=== PATIENT | female | born 1930 | race Caucasian/White ===

== ENCOUNTER 2017-02-20 09:31 | Emergency (ER) | payer MEDICARE, BC ==
[2017-02-20] MEDS ORDERED: ONDANSETRON HCL/PF 2 MG/ML VIAL ONE (09:50)
[2017-02-20] MEDS ORDERED: NORMAL SALINE 1,000 ML IV ONE ×2 (09:50→15:28)
[2017-02-20] MEDS ORDERED: ONDANSETRON HCL/PF 2 MG/ML VIAL IV ONE (09:53)
[2017-02-20 09:59] LABS: Hematocrit 30.6 % (37.0-47.0); Mean Corpuscular Hemoglobin 29.1 pg (27-31); Mean Corpuscular Hgb Conc 32.7 g/dl (32-36); Mean Platelet Volume 10.1 fl (6.0-9.5); Platelet Count 280 K/mm3 (150-450); Red Blood Count 3.44 M/mm3 (4.2-5.4); Red Cell Distribution Width 13.7 % (11.5-14.0)
[2017-02-20 10:03] LABS: Total Cells Counted 100
[2017-02-20 10:09] LABS: Prothrombin Time (Patient) 40.1 Seconds (9.0-11.0)
[2017-02-20 10:10] LABS: Band 10 % (0-2.0); INR 3.95 INR (0.90-1.10); Immature Granulocyte 3 (0-1); Lymphocyte 8 % (20-51); Neutrophil 79 % (42-75); Neutrophil # 23.7 K/mm3 (1.3-6.0)
[2017-02-20 10:11] LABS: Dohle Bodies 2+; Platelet Estimate Normal (NORMAL); Toxic Granulation 1+
[2017-02-20 10:20] LABS: Albumin * 3.4 gm/dl (3.4-5.0); Anion Gap 18.5 mmol/L (6.8-13.8); BUN/Creatinine Ratio 34.1 (9.0-21.6); Bilirubin, Total 1.2 mg/dL (0.0-1.1); Calcium * 9.8 mg/dL (7.9-10.9); Carbon Dioxide 24.2 mmol/L (24-32.6); Potassium 3.7 mmol/L (3.4-4.6); Total Protein 6.7 gm/dL (6.2-8.2)
[2017-02-20] MEDS ORDERED: HYDROmorphone HCL 1 MG/ML DISP.SYRIN IV ONE ×3 (10:49→23:48)
[2017-02-20] MEDS ORDERED: HYDROmorphone HCL 1 MG/ML DISP.SYRIN ONE (10:50)
[2017-02-20] MEDS ORDERED: DIPHTH,PERTUSS(ACELL),TET VAC 0.5 ML VIAL IM ONE ×2 (11:01→11:15)
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
[2017-02-20] MEDS ORDERED: NORMAL SALINE 1,000 ML IV PRN (11:14)
[2017-02-20 11:27] LABS: Urine Bilirubin Negative (NEGATIVE); Urine Blood 25 /ul (NEGATIVE); Urine Ketone Negative (NEGATIVE); Urine Nitrite Negative (NEGATIVE); Urine Protein 15 mg/dL (NEGATIVE); Urine Specific Gravity 1.025 SP.GR. (1.005-1.010); Urine Urobilinogen Normal (NORMAL); Urine pH 5.5 pH (5.0-7.0)
[2017-02-20 11:34] LABS: Urine Appearance Slightly Cloudy; Urine Bacteria TRACE; Urine Color Yellow; Urine RBC None Seen /hpf (0-5); Urine WBC 0-5 /hpf (0-5)
[2017-02-20 11:40] LABS: Cocaine Ur Negative (NEGATIVE); Urine Barbiturate Negative (NEGATIVE); Urine Benzodiazepines Negative (NEGATIVE); Urine Opiates Negative (NEGATIVE); Urine PCP Negative (NEGATIVE); Urine THC Negative (NEGATIVE)
[2017-02-20] MEDS ORDERED: HYDROmorphone HCL 2 MG/ML VIAL ONE ×2 (14:38→23:33)
[2017-02-20] MEDS ORDERED: HYDROmorphone HCL 1 MG/ML DISP.SYRIN IV PRN (15:49)
[2017-02-20 16:27] LABS: Hematocrit 25.9 % (37.0-47.0); Mean Cell Volume 94.9 fl (78-100); Mean Corpuscular Hemoglobin 28.6 pg (27-31); Mean Corpuscular Hgb Conc 30.1 g/dl (32-36); Neutrophil # 17.5 K/mm3 (1.3-6.0); Neutrophil % 79.1 % (42-75.0); Platelet Count 168 K/mm3 (150-450); Red Blood Count 2.73 M/mm3 (4.2-5.4); White Blood Count 22.1 K/mm3 (4.0-10.5)
[2017-02-20 16:41] LABS: Hemoglobin 7.8 gm/dL (12.5-16.0)
[2017-02-20 16:42] LABS: Total Cells Counted 100
[2017-02-20 17:45] LABS: Band 3 % (0-2.0); Lymphocyte 19 % (20-51); Monocyte 6 % (0-9); Neutrophil 72 % (42-75); Neutrophil # 15.9 K/mm3 (1.3-6.0); Platelet Estimate Normal (NORMAL)
[2017-02-20 17:46] LABS: Microcytosis 1+
[2017-02-20] MEDS ORDERED: HYDROmorphone HCL 1 MG/ML DISP.SYRIN IM ONE (23:39)
[2017-02-20] MEDS ORDERED: DILTIAZEM HCL 5 MG/ML VIAL IV ONE (23:42)
--- NOTE | 2017-02-20 23:43 | PN ---
<Albaro Rehman - Last Filed: 02/21/17 04:12> Progess Note - Interim Narrative: 02/20/17 23:43 Patient is doing well. Pain and came back so we gave her some Dilaudid. She was noted to have a heart rate of 153. I asked to move moved over to a regular room or return monitor here. We'll start her on Cardizem. We will also give a drip. 02/21/17 04:12 The patient's heart rate is now in the 130s. I have given her an additional amp of calcium gluconate which raised her blood pressure to 99/53. Cardizem was increased to 15 mg per hour. The patient's pain is under control <Elliott Moctezuma - Last Filed: 02/21/17 13:34> COURSE - Course Orders, Progress: Active Medications Sodium Chloride (Sodium Chloride 0.9%) 1,000 mls @ 999 mls/hr IV .Q1H1M PRN PRN Reason: HYDRATION Last Infusion: 02/20/17 14:36 Dose: Infused Diltiazem HCl 125 mg/ Dextrose (/Water) 125 mls @ 0 mls/hr IV TITR PRN; Protocol; Titrate PRN Reason: Arrhythmia Stop: 03/22/17 23:43 Last Admin: 02/21/17 11:44 Dose: 10 ml/hr, 10 mls/hr Ceftriaxone Sodium 1,000 mg/ (Dextrose/Water) 50 mls @ 100 mls/hr IV DAILY REY PRN Reason: Protocol Stop: 02/25/17 09:29 Last Admin: 02/21/17 09:47 Dose: 100 mls/hr Morphine Sulfate (Morphine Sulfate) 2 mg IV Q4H PRN PRN Reason: Pain Stop: 03/23/17 09:34 Last Admin: 02/21/17 10:53 Dose: 2 mg Discontinued Medications Calcium Gluconate (Calcium Gluconate) 4.65 meq IV ONCE ONE Stop: 02/21/17 00:23 Last Admin: 02/21/17 00:30 Dose: 4.65 meq Calcium Gluconate (Calcium Gluconate) 4.65 meq IV ONCE ONE Stop: 02/21/17 04:06 Last Admin: 02/21/17 04:07 Dose: 4.65 meq Diltiazem HCl (Cardizem) 10 mg IV ONCE ONE Stop: 02/20/17 23:43 Last Admin: 02/21/17 00:15 Dose: 10 mg Diphtheria/Tetanus/Acell Pertussis (Adacel) 0.5 ml IM .ONCE ONE Stop: 02/20/17 11:02 Last Admin: 02/20/17 11:34 Dose: 0.5 ml Hydromorphone HCl (Dilaudid) 0.5 mg IV ONCE ONE Stop: 02/20/17 10:50 Last Admin: 02/20/17 10:53 Dose: 0.5 mg Hydromorphone HCl (Dilaudid) 0.5 mg IV ONCE ONE Stop: 02/20/17 14:28 Last Admin: 02/20/17 14:38 Dose: 0.5 mg Hydromorphone HCl (Dilaudid) 0.5 mg IM ONCE ONE Stop: 02/20/17 23:40 Last Admin: 02/21/17 00:10 Dose: Not Given Hydromorphone HCl (Dilaudid) 0.5 mg IV ONCE ONE Stop: 02/20/17 23:49 Last Admin: 02/21/17 00:00 Dose: 0.5 mg Sodium Chloride (Sodium Chloride 0.9%) 1,000 mls @ 999 mls/hr IV .Q1H1M ONE Stop: 02/20/17 10:50 Last Infusion: 02/20/17 11:31 Dose: Infused Ceftriaxone Sodium 1,000 mg/ (Dextrose/Water) 100 mls @ 200 mls/hr IV ONCE ONE PRN Reason: Protocol Stop: 02/20/17 11:20 Last Infusion: 02/20/17 14:37 Dose: Infused Sodium Chloride (Sodium Chloride 0.9%) 1,000 mls @ 250 mls/hr IV .Q4H ONE Stop: 02/20/17 19:27 Last Infusion: 02/20/17 15:35 Dose: 250 mls/hr Ondansetron HCl (Zofran) 4 mg IV ONCE ONE Stop: 02/20/17 09:54 Last Admin: 02/20/17 09:54 Dose: 4 mg 02/20/17 09:46 Chest Single View * Stat 02/20/17 09:47 EKG * Stat 02/20/17 09:49 CT Cervical W/O * Stat CT Head W/O * Stat 02/20/17 09:50 Normal Saline [Sodium Chloride 0.9%] 1,000 ml IV 999 mls/hr Ondansetron HCl/Pf [Zofran] 4 mg .ROUTE .STK-MED ONE 02/20/17 09:53 Ondansetron HCl/Pf [Zofran] 4 mg IV ONCE ONE 02/20/17 09:55 Blood [Packed Cells [id number]] Routine Fresh Frozen Plasma Routine Type and Screen Routine CBC Routine Comprehensive Metabolic Panel Routine ETOH Routine INR [Prothrombin Time] Routine Lactic Acid Routine 02/20/17 09:56 Hip & Pelvis 2-3 Views RT * Stat 02/20/17 10:06 Insert Urinary catheter ONCE Manage Urinary catheter QSHIFT 02/20/17 10:49 HYDROmorphone HCL [Dilaudid] 0.5 mg IV ONCE ONE 02/20/17 10:50 UCS * Routine Urine Drug Screen FMCH * Routine HYDROmorphone HCL [Dilaudid] 1 mg .ROUTE .STK-MED ONE 02/20/17 10:51 cefTRIAXone SODIUM [Rocephin] 1,000 mg Dextrose 5 % in Water [Dextrose 5%/ Water] 100 ml IV ONCE 02/20/17 11:01 Elbow 2 View LT Stat Knee 1 or2 View RT Stat Wrist Min 3 Views RT Stat Diphth,Pertuss(Acell),Tet Vac [Adacel] 0.5 ml IM .ONCE ONE 02/20/17 11:14 Normal Saline [Sodium Chloride 0.9%] 1,000 ml IV 999 mls/hr 02/20/17 11:15 Diphth,Pertuss(Acell),Tet Vac [Adacel] 0.5 ml IM .[facility] ONE 02/20/17 11:16 Blood Product(Nursg Com) Order .see physician order 02/20/17 11:40 Culture Blood Routine 02/20/17 12:53 Lactic Acid Routine 02/20/17 14:27 HYDROmorphone HCL [Dilaudid] 0.5 mg IV ONCE ONE 02/20/17 14:38 HYDROmorphone HCL [Dilaudid] 2 mg .ROUTE .STK-MED ONE 02/20/17 15:28 Normal Saline [Sodium Chloride 0.9%] 1,000 ml IV 250 mls/hr 02/20/17 15:49 HYDROmorphone HCL [Dilaudid] 0.5 mg IV Q4H PRN 02/20/17 16:17 Lactic Acid Routine 02/20/17 16:25 CBC Routine 02/20/17 16:41 Blood Product(Nursg Com) Order .see physician order Hgb/Hct .2H POST BLD TRANSF 02/20/17 23:33 HYDROmorphone HCL [Dilaudid] 2 mg .ROUTE .STK-MED ONE 02/20/17 23:39 HYDROmorphone HCL [Dilaudid] 0.5 mg IM ONCE ONE 02/20/17 23:42 Diltiazem HCl [Cardizem] 10 mg IV ONCE ONE Diltiazem HCl [Cardizem] 125 mg Dextrose 5 % in Water [Dextrose 5%/Water] 100 ml IV TITR 02/20/17 23:48 HYDROmorphone HCL [Dilaudid] 0.5 mg IV ONCE ONE 02/20/17 Dinner Regular Diet [DIET] 02/21/17 00:01 NPO [Nothing Per Oral] [DIET] 02/21/17 00:12 Diltiazem HCl [Cardizem] 25 mg IV .STK-MED ONE 02/21/17 00:22 Calcium Gluconate 4.65 meq IV .STK-MED ONE Calcium Gluconate 4.65 meq IV ONCE ONE 02/21/17 04:00 Calcium Gluconate 4.65 meq IV .STK-MED ONE 02/21/17 04:05 Calcium Gluconate 4.65 meq IV ONCE ONE 02/21/17 05:59 CBC Routine Comprehensive Metabolic Panel Routine Lactic Acid Routine Prothrombin Time Routine 02/21/17 09:33 Morphine Sulfate 2 mg IV Q4H PRN 02/21/17 10:34 Morphine Sulfate 2 mg .ROUTE .STK-MED ONE 02/21/17 11:30 cefTRIAXone SODIUM [Rocephin] 1,000 mg Dextrose 5 % in Water [Dextrose 5%/ Water] 100 ml IV DAILY 02/22/17 09:00 cefTRIAXone SODIUM [Rocephin] 1,000 mg Dextrose 5 % in Water [Dextrose 5%/ Water] 50 ml IV DAILY ED Progress - PROGRESS/REASSESSMENT Condition: Unchanged - VITAL SIGNS Patient's Vital Signs:: I have reviewed the patient's vital signs. Vital Signs - Last Taken Temp 37.3 C 02/21/17 12:53 Pulse 105 H 02/21/17 13:26 Resp 22 H 02/21/17 13:26 BP 97/43 02/21/17 13:26 Pulse Ox 96 02/21/17 13:26 - RESULTS AND ORDERS Patient's Lab Results:: I have reviewed the patient's lab results. Results and Orders: Abnormal/Pending Laboratory Last 24 HRS 02/21/17 02/21/17 02/21/17 05:59 05:59 05:59 WBC 23.6 H RBC 3.07 L Hgb 9.0 L Hct 27.1 L MCHC RDW 14.5 H MPV 10.5 H Immature Gran % (Auto) Immature Gran # (Auto) Neutrophils % Neutrophils % (Manual) 83 H Band Neuts % (Manual) 3 H Lymphocytes % Lymphocytes % (Manual) 12 L Neutrophils # Neutrophils # (Manual) 19.6 H Lymphocytes # (Manual) Monocytes # Monocytes # (Manual) PT 19.3 H INR (Anticoag Therapy) 1.92 H Chloride 107 H BUN 55 H Creatinine 1.41 H Est GFR (Non-Af Amer) 38 L D BUN/Creatinine Ratio 39.0 H Random Glucose 138 H Lactic Acid, Venous AST 148 H Total Protein 5.7 L Albumin 2.7 L Crossmatch 02/20/17 02/20/17 02/20/17 16:25 16:17 09:55 WBC 22.1 H D RBC 2.73 L Hgb 7.8 L* D Hct 25.9 L MCHC 30.1 L RDW MPV 11.0 H Immature Gran % (Auto) 0.60 H Immature Gran # (Auto) 0.13 H Neutrophils % 79.1 H Neutrophils % (Manual) Band Neuts % (Manual) 3 H Lymphocytes % 11.5 L Lymphocytes % (Manual) 19 L Neutrophils # 17.5 H Neutrophils # (Manual) 15.9 H Lymphocytes # (Manual) 4.2 H Monocytes # 1.9 H Monocytes # (Manual) 1.3 H PT INR (Anticoag Therapy) Chloride BUN Creatinine Est GFR (Non-Af Amer) BUN/Creatinine Ratio Random Glucose Lactic Acid, Venous 4.7 H* AST Total Protein Albumin Crossmatch See Detail Culture 02/20/17 11:40 Blood Culture - Preliminary Blood NO GROWTH 24 HOURS 02/20/17 09:00 Blood Culture - Preliminary Blood NO GROWTH 24 HOURS - TRANSFER OF CARE Expected Disposition: Transfer - case discussed with dr kelsy ramos [facility] patient accepted for tranfer
[2017-02-21] MEDS ORDERED: DILTIAZEM HCL 5 MG/ML VIAL IV ONE (00:12)
[2017-02-21] MEDS ORDERED: CALCIUM GLUCONATE 4.65 MEQ/10 ML VIAL IV ONE ×4 (00:22→04:05)
[2017-02-21] MEDS: DILTIAZEM HCL 125 MG in DEXTROSE 5 % IN WATER 100 ML IV PRN ×4 (00:59→11:44)
[2017-02-21 06:07] LABS: Hematocrit 27.1 % (37.0-47.0); Mean Cell Volume 88.3 fl (78-100); Mean Corpuscular Hemoglobin 29.3 pg (27-31); Mean Corpuscular Hgb Conc 33.2 g/dl (32-36); Mean Platelet Volume 10.5 fl (6.0-9.5); Platelet Count 207 K/mm3 (150-450); Red Blood Count 3.07 M/mm3 (4.2-5.4); Red Cell Distribution Width 14.5 % (11.5-14.0); White Blood Count 23.6 K/mm3 (4.0-10.5)
[2017-02-21 06:08] LABS: Total Cells Counted 100
[2017-02-21 06:16] LABS: Prothrombin Time (Patient) 19.3 Seconds (9.0-11.0)
[2017-02-21 06:17] LABS: Albumin * 2.7 gm/dl (3.4-5.0); Ca. Corrected For Albumin 9.8 mg/dL (8.4-10.2); Calcium * 9.1 mg/dL (7.9-10.9); Total Protein 5.7 gm/dL (6.2-8.2)
[2017-02-21 06:20] LABS: Atypical (Reactive) Lymph 1 % (0-2); Band 3 % (0-2.0); Eosinophil 1 % (0-3); Lymphocyte 12 % (20-51); Neutrophil 83 % (42-75); Neutrophil # 19.6 K/mm3 (1.3-6.0)
[2017-02-21 06:21] LABS: Dohle Bodies 1+; Platelet Estimate Normal (NORMAL); Toxic Granulation 2+
[2017-02-21 06:45] LABS: INR 1.92 INR (0.90-1.10)
[2017-02-21] MEDS ORDERED: MORPHINE SULFATE 2 MG/ML DISP.SYRIN IV PRN (09:33)
[2017-02-21] MEDS ORDERED: MORPHINE SULFATE 2 MG/ML DISP.SYRIN ONE (10:34)
[2017-02-21 13:47] VITALS: BP 109/45
[2017-02-22] MEDS ORDERED: cefTRIAXone SODIUM 1,000 MG in DEXTROSE 5 % IN WATER 50 ML IV SCH ×2 (09:00)
== END 2017-02-21 14:40 | disposition short-term general hospital (02) ==
LOC: ER 09:31 → SUPCPDRO 09:31 → ER 02-21 14:40
PROC: 30233L1 Transfusion of Nonautologous Fresh Plasma into Peripheral Vein, Percutaneous Approach (ICD-10-PCS; principal; 2017-02-20)
PROC: 30233K1 Transfusion of Nonautologous Frozen Plasma into Peripheral Vein, Percutaneous Approach (ICD-10-PCS; 2017-02-20)
DX: S72.141A Displaced intertrochanteric fracture of right femur, initial encounter for closed fracture (principal); S72.21XA Displaced subtrochanteric fracture of right femur, initial encounter for closed fracture; S80.211A Abrasion, right knee, initial encounter; S90.414A Abrasion, right lesser toe(s), initial encounter; S52.501A Unspecified fracture of the lower end of right radius, initial encounter for closed fracture; Z79.01 Long term (current) use of anticoagulants; R40.2410 Glasgow coma scale score 13-15, unspecified time; Z87.440 Personal history of urinary (tract) infections; I48.91 Unspecified atrial fibrillation; I10 Essential (primary) hypertension; W18.39XA Other fall on same level, initial encounter; Y93.89 Activity, other specified; Y92.89 Other specified places as the place of occurrence of the external cause; Z23 Encounter for immunization
CPT/HCPCS: 36415; 36430; 70450; 71045; 72125; 73070; 73110; 73502; 73560; 80053; 80307; 81001; 83605; 85014; 85018; 85025; 85610; 86850; 86900; 87040; 90471; 90715; 93005; 96365; 96366; 96367; 96375; 96376; 99285; G0481; J2405; P9016; P9060